=== PATIENT | female | born 1950 | race Caucasian/White ===

== ENCOUNTER 2018-03-26 16:08 | Emergency (ER) | payer OTHER, MEDICARE, BC ==
[~2018-03-26] VITALS: Ht 152.4 cm; Wt 52.6 kg
[~2018-03-26 16:08] MED LIST: Bactrim Ds Tab1 EACH PO; ESOM20 PO; HYDACE5 PO; HYDR1TAB94 PO; HYDSUL200 PO; KETO10 PO; NAPR550 PO; PREG25 PO; Prednisone20 MG PO; Ultram50 MG PO; Valium5 MG PO
[2018-03-26] MEDS ORDERED: SAVELLA25 MG PO (16:25)
== END 2018-03-26 18:54 | disposition home or self-care (01) ==
LOC: ER 16:08
DX: S13.4XXA Sprain of ligaments of cervical spine, initial encounter (principal); Z79.899 Other long term (current) drug therapy; V43.52XA Car driver injured in collision with other type car in traffic accident, initial encounter
CPT/HCPCS: 72040; 99283-25

== ENCOUNTER 2018-10-16 21:41 | Emergency (ER) | payer MEDICARE, BC ==
[~2018-10-16] VITALS: Ht 152.4 cm; Wt 55.3 kg
[~2018-10-16 21:41] MED LIST changes: +SAVELLA25 MG PO
[2018-10-16] MEDS ORDERED: PREG100 PO (23:39)
[2018-10-16] MEDS ORDERED: Hydrocodone-Ap1 EA20 PO (23:39)
== END 2018-10-17 00:13 | disposition home or self-care (01) ==
LOC: ER 21:41
DX: S83.92XA Sprain of unspecified site of left knee, initial encounter (principal); Z79.899 Other long term (current) drug therapy; W01.0XXA Fall on same level from slipping, tripping and stumbling without subsequent striking against object, initial encounter
CPT/HCPCS: 29505; 73562-LT; 73700; 99283-25

== ENCOUNTER 2020-08-05 19:15 | Emergency (ER) | payer MEDICARE, BC ==
[~2020-08-05] VITALS: Ht 165.1 cm; Wt 59.0 kg
[~2020-08-05 19:15] MED LIST changes: +Hydrocodone-Ap1 EA20 PO; +PREG100 PO
== END 2020-08-05 23:10 | disposition home or self-care (01) ==
LOC: ER 19:15
DX: U07.1 COVID-19 (principal); Z79.899 Other long term (current) drug therapy
CPT/HCPCS: 71045; 99284-25; A9270

== ENCOUNTER 2020-08-13 14:56 | Inpatient (IN) | payer MEDICARE, BC ==
[~2020-08-13] VITALS: Ht 154.9 cm; Wt 48.5 kg
[2020-08-13] MEDS ORDERED: PREGABALIN100 MG PO (15:11)
[2020-08-13] MEDS ORDERED: HYDROCODONE-AC1 EAC7 PO (15:11)
[2020-08-13 16:00] LABS: Albumin, Blood 2.3 g/dL (3.4-5.0); Albumin/Globulin Ratio 0.4 (0.8-1.8); Bilirubin, Total 0.9 mg/dL (0.1-1.0); Bun/Creatinine Ratio 30.2 (12.0-20.0); Creatinine, Blood 0.99 mg/dL (0.40-1.00); Globulin, Blood 5.4 g/dL (2.2-4.0); Potassium, Blood 4.3 mmol/L (3.5-5.5); Total Protein, Blood 7.7 g/dL (6.4-8.2)
[2020-08-13 16:05] LABS: Troponin I 0.016 ng/mL (0.000-0.040)
[2020-08-13 16:10] LABS: BASOPHILS ABSOLUTE AUTO 0.02 K/mm3 (0.00-0.23); BASOPHILS PERCENT AUTO 0 % (0-2); EOSINOPHILS ABSOLUTE AUTO 0.01 K/mm3 (0.00-0.68); EOSINOPHILS PERCENT AUTO 0 % (0-6); Hematocrit 38.4 % (33.0-51.0); Hemoglobin 12.7 g/dL (11.5-16.0); IMMATURE GRAN ABSOLUTE AUTO 0.07 K/mm3 (0.00-0.10); IMMATURE GRAN PERCENT AUTO 1 % (0-1); LYMPHOCYTES ABSOLUTE AUTO 0.64 K/mm3 (0.84-5.20); LYMPHOCYTES PERCENT AUTO 6 % (21-46); MONOCYTES ABSOLUTE AUTO 0.22 K/mm3 (0.16-1.47); MONOCYTES PERCENT AUTO 2 % (4-13); Mean Corpuscular HGB 30.4 pg (26.0-34.0); Mean Corpuscular HGB Conc 33.1 g/dL (31.5-36.5); Mean Corpuscular Volume 92 fL (80-100); Mean Platelet Volume 9.8 fL (9.1-12.4); NEUTROPHILS ABSOLUTE AUTO 10.44 K/mm3 (1.96-9.15); NEUTROPHILS PERCENT AUTO 92 % (41-73); Platelet Count 216 K/mm3 (150-400); RDW Coefficient Variation 12.5 % (11.7-14.2); RDW Standard Deviation 41.8 fL (35.1-46.3); Red Blood Cell Count 4.18 M/mm3 (3.80-5.20)
[2020-08-13 19:23] LABS: International Normalized Ratio 1.17; Prothrombin Time Results 12.5 Sec (9.7-11.5)
--- NOTE | 2020-08-13 21:12 | NUR ---
ADMIT NOTE PT ARRIVED TO PCU VIA ED STRETCHER AT APPROX 2014. PT AMBULATED FROM ED STRETCHER TO PCU BED INDEPENDENTLY. PT A&OX4, A GOOD HISTORIAN. SP02>90% ON 6L NON REBREATHER. DYSPNEA W/ ANY EXERTION. TELEMETRY READS SINUS TACH, 100'S. DENIES PAIN. PT STATES DIARRHEA AT HOME. HEPARIN INFUSING PER EMAR. NS INFUSING X1 PER EMAR. PT ORIENTED TO ROOM, CALL LIGHT.
[2020-08-14 03:54] LABS: BASOPHILS ABSOLUTE AUTO 0.01 K/mm3 (0.00-0.23); BASOPHILS PERCENT AUTO 0 % (0-2); EOSINOPHILS PERCENT AUTO 0 % (0-6); Hematocrit 36.3 % (33.0-51.0); Hemoglobin 11.9 g/dL (11.5-16.0); IMMATURE GRAN ABSOLUTE AUTO 0.05 K/mm3 (0.00-0.10); IMMATURE GRAN PERCENT AUTO 1 % (0-1); LYMPHOCYTES ABSOLUTE AUTO 0.51 K/mm3 (0.84-5.20); LYMPHOCYTES PERCENT AUTO 6 % (21-46); MONOCYTES ABSOLUTE AUTO 0.07 K/mm3 (0.16-1.47); MONOCYTES PERCENT AUTO 1 % (4-13); Mean Corpuscular HGB 29.8 pg (26.0-34.0); Mean Corpuscular HGB Conc 32.8 g/dL (31.5-36.5); Mean Corpuscular Volume 91 fL (80-100); Mean Platelet Volume 9.5 fL (9.1-12.4); NEUTROPHILS ABSOLUTE AUTO 7.31 K/mm3 (1.96-9.15); NEUTROPHILS PERCENT AUTO 92 % (41-73); Platelet Count 206 K/mm3 (150-400); RDW Coefficient Variation 12.7 % (11.7-14.2); RDW Standard Deviation 42.5 fL (35.1-46.3); White Blood Cell Count 7.95 K/mm3 (4.00-11.30)
[2020-08-14 04:13] LABS: Alanine Aminotransfer (ALT/SGP 12 U/L (12-78); Albumin, Blood 1.9 g/dL (3.4-5.0); Albumin/Globulin Ratio 0.4 (0.8-1.8); Alk Phos 92 U/L (50-136); Anion Gap 7 mmol/L (6-16); Aspartate Aminotrans (AST/SGOT 26 U/L (12-37); Bilirubin, Total 0.4 mg/dL (0.1-1.0); Blood Urea Nitrogen 28 mg/dL (8-24); Bun/Creatinine Ratio 37.4 (12.0-20.0); CO2, Blood 25 mmol/L (21-32); Calcium, Blood 8.4 mg/dL (8.5-10.1); Chloride, Blood 109 mmol/L (98-108); Creatinine, Blood 0.75 mg/dL (0.40-1.00); Globulin, Blood 4.8 g/dL (2.2-4.0); Glomerular Filtration Rate >60 (60-); Glucose, Blood 114 mg/dL (70-99); Potassium, Blood 4.3 mmol/L (3.5-5.5); Sodium, Blood 141 mmol/L (136-145); Total Protein, Blood 6.7 g/dL (6.4-8.2)
--- NOTE | 2020-08-14 06:19 | NUR ---
SHIFT SUMMARY PT A&OX4. SP02>90% ON 7L OF HUMIDIFIED [place] NC. PT NEEDS TO INCREASE TO 10L NC W/ AMBULATION TO MAINTAIN SATS. EXTREMELY SOB W/ ANY EXERTION. C/O OF DRY, HACKING COUGH. TELEMETRY READS SR/ST. HR 80'S-100'S. PT AMBULATED W/ ASSISTANCE TO BSC TO VOID AND HAVE BM, WEAKLY. HEPARIN INFUSING PER EMAR. FLUIDS INFUSING PER EMAR. CALL ILGHT IN REACH. WILL GIVE REPORT TO ONCOMING NURSE.
--- NOTE | 2020-08-14 12:29 | NUR ---
PT WITH INCREASED COUGHING, AMBULATED TO COMMODE SPO2 DROPPED TO 60s ON 14L O2 VIA NASAL CANNULA. RT CALLED PT SLOWLY RECOVERING WITH SPO2 TO 80s PT PROVIDED WITH FLUTTER VALVE AND ISS, PT EDUCATED ABOUT PRONING AND REFUSED TO PRONE DESPITE EDUCATION REFUSED PRONING.
--- NOTE | 2020-08-14 12:48 | NUR ---
PT USING ISS AND FLUTTER VALVE STS THAT SHE WILL ATTEMPT TO PRONE SHORTLY. SPO2 89% ON 14L O2, IS AWARE
--- NOTE | 2020-08-14 15:27 | NUR ---
PT'S SPO2 CONTINUES TO BE IN THE MID TO HIGH 80s ON 15L O2 VIA NASAL CANNULA. PT WAS PLACED ON AIRVO 45L @ 85% WITH SPO2 93-96%, PT REFUSED TO WEAR AIRVO IT MADE HER "SNEEZE" PT EDUCATED THAT HER SPO2 REMAINS LOW ON NC BUT REFUSES OTHER O2 DELIVERY METHODS. PT CONTINUES TO REFUSE PRONING STS SHE NEEDS "REST" INSTEAD.
--- NOTE | 2020-08-14 18:08 | NUR ---
SHIFT NOTE PT'S OXYGEN NEEDS HAVE INCREASED GREATLY THROUGHOUT THE DAY. PT WITH DESATURATION WITH AMBUALTION TO BSC, PT REQUIRES MORE OXYGEN WHEN UP TO COMMODE AND TAKES A GREAT DEAL OF TIME TO RECOVER POST AMBULATION. PT IS NOW ON 15L O2 VIA HIGH FLOW CANNULA WITH SPO2 OF 93%. PT HAS REFUSED AIRVO WHEN NEEDED FOR RECOVERY TODAY. PT PROVIDED WITH FLUTTER VALVE AND ISS WHICH SHE USED A FEW TIMES THIS AM. PT REFUSES TO PRONE DESPITE EDUCATION. PT WITH WEAK GAIT TO TRAN[facility] FROM [facility] [place] [facility] [place]T A BAD KNEE. PT MD IS AWARE OF O2 NEEDS AND REFUSAL OF AIRVO. PT NOW HAS A REGULAR DIET ORDERED. VSS WITH EXPECTION OCCASIONALLY OF SPO2.
--- NOTE | 2020-08-14 22:50 | NUR ---
FAMILY CALL THIS RN UPDATES DAUGHTER BILLIE W/PT PERMISSION.
[2020-08-15 03:32] LABS: BASOPHILS ABSOLUTE AUTO 0.01 K/mm3 (0.00-0.23); BASOPHILS PERCENT AUTO 0 % (0-2); EOSINOPHILS PERCENT AUTO 0 % (0-6); Hematocrit 34.1 % (33.0-51.0); Hemoglobin 11.2 g/dL (11.5-16.0); IMMATURE GRAN ABSOLUTE AUTO 0.14 K/mm3 (0.00-0.10); IMMATURE GRAN PERCENT AUTO 1 % (0-1); LYMPHOCYTES ABSOLUTE AUTO 0.95 K/mm3 (0.84-5.20); LYMPHOCYTES PERCENT AUTO 8 % (21-46); MONOCYTES ABSOLUTE AUTO 0.43 K/mm3 (0.16-1.47); MONOCYTES PERCENT AUTO 3 % (4-13); Mean Corpuscular HGB 30.1 pg (26.0-34.0); Mean Corpuscular HGB Conc 32.8 g/dL (31.5-36.5); Mean Corpuscular Volume 92 fL (80-100); Mean Platelet Volume 9.4 fL (9.1-12.4); NEUTROPHILS ABSOLUTE AUTO 10.95 K/mm3 (1.96-9.15); NEUTROPHILS PERCENT AUTO 88 % (41-73); Platelet Count 252 K/mm3 (150-400); RDW Coefficient Variation 12.7 % (11.7-14.2); RDW Standard Deviation 42.5 fL (35.1-46.3); Red Blood Cell Count 3.72 M/mm3 (3.80-5.20); White Blood Cell Count 12.48 K/mm3 (4.00-11.30)
[2020-08-15 03:47] LABS: International Normalized Ratio 1.22
--- NOTE | 2020-08-15 04:01 | NUR ---
UPDATE PT DESATS TO LOW 70'S WITH UP TO BEDSIDE COMMODE. PT SATS IN 70'S, RAKESH RT AT BEDSIDE TO SWITCH PT TO AIRVO, PT AGREEABLE TO PRONE, THIS RN AND RAKESH RT ASSIST PT. SETTINGS ON AIRVO AT 40 L/MIN AND 79% O2.
[2020-08-15 04:02] LABS: Alanine Aminotransfer (ALT/SGP 11 U/L (12-78); Albumin, Blood 1.9 g/dL (3.4-5.0); Albumin/Globulin Ratio 0.4 (0.8-1.8); Alk Phos 77 U/L (50-136); Anion Gap 6 mmol/L (6-16); Aspartate Aminotrans (AST/SGOT 19 U/L (12-37); Bilirubin, Total 0.3 mg/dL (0.1-1.0); Blood Urea Nitrogen 34 mg/dL (8-24); Bun/Creatinine Ratio 47.4 (12.0-20.0); CO2, Blood 27 mmol/L (21-32); Calcium, Blood 8.6 mg/dL (8.5-10.1); Chloride, Blood 107 mmol/L (98-108); Creatinine, Blood 0.72 mg/dL (0.40-1.00); Globulin, Blood 4.4 g/dL (2.2-4.0); Glomerular Filtration Rate >60 (60-); Glucose, Blood 135 mg/dL (70-99); Magnesium, Blood 2.4 mg/dL (1.6-2.4); Phosphorus, Blood 3.1 mg/dL (2.5-4.9); Potassium, Blood 4.3 mmol/L (3.5-5.5); Sodium, Blood 140 mmol/L (136-145); Thyroid Stimulating Hormone 0.194 uIU/mL (0.360-4.800); Total Protein, Blood 6.3 g/dL (6.4-8.2); Troponin I 0.017 ng/mL (0.000-0.040)
--- NOTE | 2020-08-15 06:30 | NUR ---
SHIFT SUMMARY PT AOX3, RHYTHM SINUS-SINUS INNA 40'S-70'S. PT DYSPNEIC WITH UP TO BSC. STANDBY ASSIST. SATS DROP TO 70'S ON 15 L VIA HIGH FLOW NC IN NIGHT, PT SATS TOOK LONG TO RECOVER WHILE SITTING ON BED, MAINTAINED IN 70'S, RAKESH RT TO BEDSIDE AND PT PLACED ON AIRVO, PRONED IN BED WITH ASSISTANCE, SATS UP TO 98-100% WHILE PRONED AND ON AIRVO. HEPARIN DRIP CONTINUES AT ADJUSTED RATE OF 21.2 MLS/HR 20 U/KG/HR. THIS RN CALLED RENETTA IN PHARMACY WHEN PTT RESULTED THIS AM OF 74. RENETTA STATED NO CHANGES TO DRIP AT THIS TIME. PT SLEPT PEACEFULLY PRONED ON AIRVO FOR REST OF THIS AM. HR DOWN IN 40'S-50'S, SINUS INNA. PT ON TELE.
--- NOTE | 2020-08-15 19:11 | NUR ---
PT HAS REMAINED ON AIRVO T/O THE DAY WHICH IS SHE IS TOLERATING WELL. PT DESATURATED SLIGHTLY WITH AMBUALTION TO BEDSIDE COMMODE BUT WAS ABLE TO RECOVER MORE QUICKLY ON THE AIRVO. VSS. REPORTS SOME LOWER LEG PAIN, TREATED WITH TYLENOL. PT OTHERWISE APPEARS TO HAVE SLIGHT IMPROVEMENT IN RESPIRATORY STATUS
--- NOTE | 2020-08-15 19:56 | NUR ---
HEPARIN ADJUSTMENT RATE INCREASED TO 24.4 MLS/HR, 23 U/KG/HR PER ORDERS, 2500 U BOLUS GIVEN PER ORDER.
[2020-08-16 02:16] LABS: BASOPHILS ABSOLUTE AUTO 0.01 K/mm3 (0.00-0.23); BASOPHILS PERCENT AUTO 0 % (0-2); EOSINOPHILS PERCENT AUTO 0 % (0-6); Hematocrit 34.3 % (33.0-51.0); Hemoglobin 11.6 g/dL (11.5-16.0); IMMATURE GRAN ABSOLUTE AUTO 0.16 K/mm3 (0.00-0.10); IMMATURE GRAN PERCENT AUTO 2 % (0-1); LYMPHOCYTES ABSOLUTE AUTO 0.93 K/mm3 (0.84-5.20); LYMPHOCYTES PERCENT AUTO 9 % (21-46); MONOCYTES ABSOLUTE AUTO 0.56 K/mm3 (0.16-1.47); MONOCYTES PERCENT AUTO 5 % (4-13); Mean Corpuscular HGB 30.3 pg (26.0-34.0); Mean Corpuscular HGB Conc 33.8 g/dL (31.5-36.5); Mean Corpuscular Volume 90 fL (80-100); Mean Platelet Volume 9.4 fL (9.1-12.4); NEUTROPHILS ABSOLUTE AUTO 8.81 K/mm3 (1.96-9.15); NEUTROPHILS PERCENT AUTO 84 % (41-73); Platelet Count 325 K/mm3 (150-400); RDW Coefficient Variation 12.4 % (11.7-14.2); RDW Standard Deviation 40.6 fL (35.1-46.3); Red Blood Cell Count 3.83 M/mm3 (3.80-5.20); White Blood Cell Count 10.47 K/mm3 (4.00-11.30)
[2020-08-16 02:36] LABS: International Normalized Ratio 1.27; Prothrombin Time Results 13.5 Sec (9.7-11.5)
[2020-08-16 02:44] LABS: Alanine Aminotransfer (ALT/SGP 16 U/L (12-78); Albumin/Globulin Ratio 0.5 (0.8-1.8); Alk Phos 77 U/L (50-136); Anion Gap 6 mmol/L (6-16); Aspartate Aminotrans (AST/SGOT 24 U/L (12-37); Bilirubin, Total 0.3 mg/dL (0.1-1.0); Blood Urea Nitrogen 26 mg/dL (8-24); Bun/Creatinine Ratio 37.8 (12.0-20.0); CO2, Blood 26 mmol/L (21-32); Calcium, Blood 8.7 mg/dL (8.5-10.1); Chloride, Blood 107 mmol/L (98-108); Creatinine, Blood 0.69 mg/dL (0.40-1.00); Globulin, Blood 4.3 g/dL (2.2-4.0); Glomerular Filtration Rate >60 (60-); Glucose, Blood 130 mg/dL (70-99); Magnesium, Blood 2.1 mg/dL (1.6-2.4); Phosphorus, Blood 3.2 mg/dL (2.5-4.9); Potassium, Blood 4.2 mmol/L (3.5-5.5); Sodium, Blood 139 mmol/L (136-145); Total Protein, Blood 6.3 g/dL (6.4-8.2); Troponin I <0.015 ng/mL (0.000-0.040)
--- NOTE | 2020-08-16 08:12 | NUR ---
SHIFT SUMMARY PT AOX4 T/O SHIFT. DYSPNEA WITH EXERTION. ON TELE, SINUS IN 50'S-70'S T/O SHIFT. PT PRONED FOR MOST OF SHIFT, TOLERATED WELL SATS 96-100% ON AIRVO AND NC HUMIDIFIED HF AT 6 L. ONE EPISODE OF SEVERE DECOMPENSATION WHEN UP TO BEDSIDE COMMODE WITH THIS RN. PLACED BACK ON AIRVO FROM 6 L FOLLOWING PT REPOSITIONING FROM PRONE TO ON BACK. PT REFUSED ORAL CARE, WANTED TO DEFER TO AM. PTT 115.8, HEPARIN GTT CONTINUES AT LOWER RATE OF 22 U/KG/HR PER RENETTA CONSULT IN PHARMACY.
--- NOTE | 2020-08-16 17:32 | NUR ---
SHIFT NOTE PT HAS TOELRATED AIRVO WELL T/O THE DAY. PT UP TO BSC WITH VERY LITTLE DESATURATION TODAY. DENIES CP. STS THAT TODAY LEG PAIN HAS MOSTLY RESOLVED IS MORE "SORE" THAN ANYTHING TODAY. VSS. PT TALKING IN LONGER SENTENCES THAN PREVIOUS SHIFT, PT APPEARS LESS TIRED, AND FATIGUES LESS T/O THE DAY.
[2020-08-17 04:17] LABS: BASOPHILS ABSOLUTE AUTO 0.02 K/mm3 (0.00-0.23); BASOPHILS PERCENT AUTO 0 % (0-2); EOSINOPHILS PERCENT AUTO 0 % (0-6); Hematocrit 35.9 % (33.0-51.0); Hemoglobin 12.1 g/dL (11.5-16.0); IMMATURE GRAN ABSOLUTE AUTO 0.36 K/mm3 (0.00-0.10); IMMATURE GRAN PERCENT AUTO 4 % (0-1); LYMPHOCYTES ABSOLUTE AUTO 1.25 K/mm3 (0.84-5.20); LYMPHOCYTES PERCENT AUTO 13 % (21-46); MONOCYTES ABSOLUTE AUTO 0.95 K/mm3 (0.16-1.47); MONOCYTES PERCENT AUTO 10 % (4-13); Mean Corpuscular HGB 30.3 pg (26.0-34.0); Mean Corpuscular HGB Conc 33.7 g/dL (31.5-36.5); Mean Corpuscular Volume 90 fL (80-100); Mean Platelet Volume 9.2 fL (9.1-12.4); NEUTROPHILS PERCENT AUTO 73 % (41-73); Platelet Count 322 K/mm3 (150-400); RDW Coefficient Variation 12.2 % (11.7-14.2); RDW Standard Deviation 40.2 fL (35.1-46.3); Red Blood Cell Count 3.99 M/mm3 (3.80-5.20); White Blood Cell Count 9.58 K/mm3 (4.00-11.30)
[2020-08-17 04:39] LABS: Alanine Aminotransfer (ALT/SGP 38 U/L (12-78); Albumin, Blood 2.1 g/dL (3.4-5.0); Albumin/Globulin Ratio 0.5 (0.8-1.8); Alk Phos 73 U/L (50-136); Anion Gap 4 mmol/L (6-16); Aspartate Aminotrans (AST/SGOT 40 U/L (12-37); Bilirubin, Total 0.4 mg/dL (0.1-1.0); Blood Urea Nitrogen 25 mg/dL (8-24); Bun/Creatinine Ratio 35.6 (12.0-20.0); CO2, Blood 29 mmol/L (21-32); Calcium, Blood 8.8 mg/dL (8.5-10.1); Chloride, Blood 105 mmol/L (98-108); Globulin, Blood 4.1 g/dL (2.2-4.0); Glomerular Filtration Rate >60 (60-); Glucose, Blood 103 mg/dL (70-99); Magnesium, Blood 2.2 mg/dL (1.6-2.4); Phosphorus, Blood 3.3 mg/dL (2.5-4.9); Potassium, Blood 4.1 mmol/L (3.5-5.5); Sodium, Blood 138 mmol/L (136-145); Total Protein, Blood 6.2 g/dL (6.4-8.2)
--- NOTE | 2020-08-17 05:01 | NUR ---
SHIFT SUMMARY PT A&OX4. SP02>90% ON 6L [place] NC. PT DESATS W/ MOVEMENT. PT ENCOURAGED TO PRONE. TELEMETRY READS SINUS RHYTHM, HR 70'S. PT UP TO BSC 1 PERSON ASSIST FOR LINE MANAGMENT. PT C/O OF L KNEE PAIN/SWELLING. ICE PACK APPLIED W/ SUCCESSFUL RELIEF OF PAIN AND SWELLING. HEPARIN INFUSED PER EMAR. PT SLEPT MOST OF SHIFT. CALL LIGHT IN REACH. WILL GIVE REPORT TO ONCOMING NURSE.
--- NOTE | 2020-08-17 05:15 | NUR ---
ASSUMED CARE RECEIVED BEDSIDE REPORT FROM BOB RN AND ASSUMED CARE. PT IS RESTING IN BED WITH HIGH FLOW NASAL CANNULA AT [address], SATS 93-95%. HEPAIN GTT RUNNING AND VERFIED AT TIME OF REPORT. NO ACUTE CONCERNS AT THIS TIME, WILL REPORT OFF TO DAY SHIFT RN.
--- NOTE | 2020-08-17 15:34 | NUR ---
LATE ENTRY 1100 PT REPORTS HEMOPTYSIS THIS AM, DR MALLOY NOTIFIED, NEW ORDER TO HOLD HEPARIN FOR A FEW HOURS. HEPARIN STOPPED AT APPROX 1130. [address] MALLOY TO CLARIFY ORDERS FOR HEPARIN, NEW ORDERS TO RESTART HEPARIN AT 1500. PT REPORTS NO FURTHR HEMOPTYSIS. 1516 - HEPARIN RESTARTED PER ORDERS.
--- NOTE | 2020-08-17 19:29 | NUR ---
SHIFT SUMMARY PT A&Ox4; CALM AND COOPERATIVE WITH CARE. SBA TO BSC. PT SOB WITH EXERTION, ON 7L O2 VIA NC TITRATED TO 3-4L THIS EVENING, INCREASE TO 4-5L WIHT ACTIVETY. PT DESATURATES WITH ACTIVITY TO MID 80'S, QUICKLY RECOVERS. PT COUGHING T/O SHIFT, HEMOPTYSIS NOTED THIS AM, HELD HEPARIN FROM [id number] ISTRATE ORDERS. PT DENIES HEMOPTYSIS FOR REMAINDER OF SHIFT, AFTER SR ROUNDING THIS AM. PT DENIES PAIN, CHEST PAIN, NAUSEA AND DIZZINESS. HEPARIN GTT, PT RECEIVING IV ANTIBIOTICS AND REMDESIVIR. OTHER VSS. NO OTHER ACUTE CHANGES NOTED. REPORT GIVEN TO ONCOMING RN.
[2020-08-18 06:21] LABS: BASOPHILS ABSOLUTE AUTO 0.03 K/mm3 (0.00-0.23); BASOPHILS PERCENT AUTO 0 % (0-2); EOSINOPHILS PERCENT AUTO 0 % (0-6); Hematocrit 39.4 % (33.0-51.0); Hemoglobin 12.9 g/dL (11.5-16.0); IMMATURE GRAN ABSOLUTE AUTO 0.52 K/mm3 (0.00-0.10); IMMATURE GRAN PERCENT AUTO 4 % (0-1); LYMPHOCYTES ABSOLUTE AUTO 2.23 K/mm3 (0.84-5.20); LYMPHOCYTES PERCENT AUTO 17 % (21-46); MONOCYTES PERCENT AUTO 6 % (4-13); Mean Corpuscular HGB 29.8 pg (26.0-34.0); Mean Corpuscular HGB Conc 32.7 g/dL (31.5-36.5); Mean Corpuscular Volume 91 fL (80-100); Mean Platelet Volume 9.6 fL (9.1-12.4); NEUTROPHILS ABSOLUTE AUTO 9.66 K/mm3 (1.96-9.15); NEUTROPHILS PERCENT AUTO 73 % (41-73); Platelet Count 334 K/mm3 (150-400); RDW Coefficient Variation 12.5 % (11.7-14.2); RDW Standard Deviation 41.2 fL (35.1-46.3); Red Blood Cell Count 4.33 M/mm3 (3.80-5.20); White Blood Cell Count 13.24 K/mm3 (4.00-11.30)
[2020-08-18 06:51] LABS: Alanine Aminotransfer (ALT/SGP 42 U/L (12-78); Albumin, Blood 2.3 g/dL (3.4-5.0); Albumin/Globulin Ratio 0.5 (0.8-1.8); Alk Phos 75 U/L (50-136); Anion Gap 5 mmol/L (6-16); Aspartate Aminotrans (AST/SGOT 28 U/L (12-37); Bilirubin, Total 0.4 mg/dL (0.1-1.0); Blood Urea Nitrogen 25 mg/dL (8-24); Bun/Creatinine Ratio 30.8 (12.0-20.0); CO2, Blood 29 mmol/L (21-32); Calcium, Blood 8.7 mg/dL (8.5-10.1); Chloride, Blood 103 mmol/L (98-108); Creatinine, Blood 0.81 mg/dL (0.40-1.00); Globulin, Blood 4.3 g/dL (2.2-4.0); Glomerular Filtration Rate >60 (60-); Glucose, Blood 106 mg/dL (70-99); Sodium, Blood 137 mmol/L (136-145); Total Protein, Blood 6.6 g/dL (6.4-8.2); Troponin I <0.015 ng/mL (0.000-0.040)
--- NOTE | 2020-08-18 06:51 | NUR ---
HOSPITALIST NOTIFIED PT C/O PAIN TO THE RIGHT LOWER RIB/LUNG. PT'S SPO2 REMAINS ABOVE 92% ON 4L O2 VIA NC. LUNG SOUNDS ARE DIMINISHED THROUGH OUT, SLIGHT RUB NOTED TO R.LL. 1 VIEW CHEST XRAY ORDERED
[2020-08-18 07:06] LABS: International Normalized Ratio 1.22
--- NOTE | 2020-08-18 13:16 | NUR ---
AM NOTE ASSUMED CARE OF PATIENT AT APPROX 0700. A&Ox4; CALM AND COOPERATIVE WITH CARE. PT RESTING IN BED DURING SHIFT. UP WITH SBA TO BSC. PT REPORTS RIGHT SIDE/RIB PAIN, INTERMITTENT SHARP; NOTIFIED DR MALLOY, NEW ORDER FOR TRAMADOL. NOTIIFED DR MALLOY OF RESULTS OF XRAY. PT SOB WITH EXERTION; PT DESATURATS WITH EXERTION, SPO2 >88 WITH ACTIVITY AT 3L O2 VIANC, WILL CONTINUE TO TITRATE NEEDED. PT DENIES HEMOTYSIS AND ANY OTHER BLEEDING. PT DENIES NAUSEA, DIZZINES AND CHEST PAIN. VSS. NO OTHER ACUTE CHANGES NOTED. WILL CONTINUE TO MONITOR.
--- NOTE | 2020-08-18 17:38 | NUR ---
SHIFT SUMMARY PT CONTINUES TO DENIES HEMOTYSIS AND BLEEDING T/O SHIFT. TITRATED TO 1L O2 VIA NC THIS AFTENROON, INCREASED TO 3L WITH ACTIVITY. PT TO FOR CHEST CT THIS AFTERNOON, RESULTS PENDING. VSS. NO OTHER ACUTE CHANGES NOTED DURING SHIFT. WILL CONTINUE TO MONITOR UNTIL REPORT GIVEN TO ONCOMING RN.
--- NOTE | 2020-08-19 06:50 | NUR ---
HEPARIN STOPPED AT THIS TIME PER PHARMACY REQUEST DUE TO CRITAICAL PTT OF >139.
--- NOTE | 2020-08-19 06:51 | NUR ---
SUMMARY PT HAS BEEN ABLE TO REST WITH NO PROBLEMS THROUGH THE NIGHT. SHE HAS MAINTAINED AN SPO2 >93% ON 1 L O2 VIA NC UNTIL THIS AM. SHE WAS INCREASED TO 3L & ENC TO USE INCENTIVE SPIROMETER AFTER DIPPING INTO THE HIGH 80'S AFTER GETTING UP TO THE BSC. PT IS COOPERATIVE & SPO2 RETURNED TO 94%. PT WAS LEFT @ 3L. SHE IS TOLERATING PO INTAKE, VOIDING WNL. HEPARIN WAS HELD THIS AM DUE TO CRITICAL PTT >139. NO CHANGE IN PT CONDITION. CALL LIGHT IN REACH. WILL REPORT TO DAY RN.
[2020-08-19] MEDS ORDERED: DEXA2 PO (13:13)
[2020-08-19] MEDS ORDERED: XARELTO20 MG PO ×2 (13:15→13:18)
[2020-08-19] MEDS ORDERED: ACET325 PO (13:30)
[2020-08-19] MEDS ORDERED: Q-Tussin100 MG/5 M (13:31)
[2020-08-19] MEDS ORDERED: LEVO750 PO (13:31)
[2020-08-19] MEDS ORDERED: LOPE2C PO (13:32)
[2020-08-19] MEDS ORDERED: LORA.5 PO (13:33)
[2020-08-19] MEDS ORDERED: PROM25 PO (13:34)
[2020-08-19] MEDS ORDERED: VISBIOME 112.51 EACH PO (13:35)
--- NOTE | 2020-08-19 18:48 | NUR ---
PT AND FAMILY EXPRESSED UNDERSTANDING OF DC TEACHING.MEDS ARE CALLED INTO [facility] FOR XARELVINI AND TONY FOR THE REMAINDER. FAMILY IS AWARE OF THE SPLIT IN PHAMRACIES FAMILY CALLED TO NOTIFIY THIS RN THAT PT WAS UNABLE TO GET XARELTO FROM [facility]
== END 2020-08-19 18:25 | disposition home or self-care (01) | DRG 177 ==
LOC: ER 14:56 → ERHOLD 19:29 → PCU 19:29
PROVIDERS: Family Medicine; Physician Assistant; ADMIT Internal Medicine
PROC: 8E0ZXY6 Isolation (ICD-10-PCS; principal; 2020-08-13)
PROC: 3E033PZ Introduction of Platelet Inhibitor into Peripheral Vein, Percutaneous Approach (ICD-10-PCS; 2020-08-13)
PROC: XW033E5 Introduction of Remdesivir Anti-infective into Peripheral Vein, Percutaneous Approach, New Technology Group 5 (ICD-10-PCS; 2020-08-13)
DX: U07.1 COVID-19 (principal); J96.01 Acute respiratory failure with hypoxia; J12.82 Pneumonia due to coronavirus disease 2019; I26.99 Other pulmonary embolism without acute cor pulmonale; R04.2 Hemoptysis; D68.32 Hemorrhagic disorder due to extrinsic circulating anticoagulants; R04.0 Epistaxis; A08.4 Viral intestinal infection, unspecified; T45.515A Adverse effect of anticoagulants, initial encounter; E86.0 Dehydration; G89.29 Other chronic pain; M79.7 Fibromyalgia; Z79.899 Other long term (current) drug therapy
CPT/HCPCS: 36415; 71045; 71260; 80053; 83690; 83735; 83880; 84100; 84145; 84443; 84484; 85025; 85610; 85651; 85730; 86140; 93005; 93010; 94667; 94761; 94762; 96361; 96365; 96366; 96375; 99285-25; A9270; J1100; J1644; J1956; J2405; J7030; Q9967

== ENCOUNTER 2020-09-26 20:08 | Observation (INO) | payer MEDICARE, BC ==
[~2020-09-26] VITALS: Ht 152.4 cm; Wt 50.8 kg
[~2020-09-26 20:08] MED LIST changes: +ACET325 PO; +DEXA2 PO; +HYDROCODONE-AC1 EAC7 PO; +LEVO750 PO; +LOPE2C PO; +LORA.5 PO; +PREGABALIN100 MG PO; +PROM25 PO; +Q-Tussin100 MG/5 M; +VISBIOME 112.51 EACH PO; +XARELTO20 MG PO
[2020-09-26 21:29] LABS: BASOPHILS ABSOLUTE AUTO 0.05 K/mm3 (0.00-0.23); BASOPHILS PERCENT AUTO 1 % (0-2); EOSINOPHILS ABSOLUTE AUTO 0.05 K/mm3 (0.00-0.68); EOSINOPHILS PERCENT AUTO 1 % (0-6); Hematocrit 37.4 % (33.0-51.0); IMMATURE GRAN ABSOLUTE AUTO 0.02 K/mm3 (0.00-0.10); IMMATURE GRAN PERCENT AUTO 0 % (0-1); LYMPHOCYTES ABSOLUTE AUTO 1.73 K/mm3 (0.84-5.20); LYMPHOCYTES PERCENT AUTO 31 % (21-46); MONOCYTES ABSOLUTE AUTO 0.59 K/mm3 (0.16-1.47); MONOCYTES PERCENT AUTO 11 % (4-13); Mean Corpuscular HGB 30.5 pg (26.0-34.0); Mean Corpuscular HGB Conc 32.1 g/dL (31.5-36.5); Mean Corpuscular Volume 95 fL (80-100); Mean Platelet Volume 9.5 fL (9.1-12.4); NEUTROPHILS PERCENT AUTO 57 % (41-73); Platelet Count 271 K/mm3 (150-400); RDW Coefficient Variation 13.2 % (11.7-14.2); RDW Standard Deviation 46.5 fL (35.1-46.3); Red Blood Cell Count 3.94 M/mm3 (3.80-5.20); White Blood Cell Count 5.64 K/mm3 (4.00-11.30)
[2020-09-26 21:45] LABS: Prothrombin Time Results 10.8 Sec (9.7-11.5)
[2020-09-26 21:49] LABS: Alanine Aminotransfer (ALT/SGP 21 U/L (12-78); Albumin, Blood 3.6 g/dL (3.4-5.0); Albumin/Globulin Ratio 0.9 (0.8-1.8); Alk Phos 86 U/L (50-136); Anion Gap 3 mmol/L (6-16); Aspartate Aminotrans (AST/SGOT 22 U/L (12-37); Bilirubin, Total 0.3 mg/dL (0.1-1.0); Blood Urea Nitrogen 17 mg/dL (8-24); Bun/Creatinine Ratio 24.7 (12.0-20.0); CO2, Blood 33 mmol/L (21-32); Calcium, Blood 9.5 mg/dL (8.5-10.1); Chloride, Blood 104 mmol/L (98-108); Creatinine, Blood 0.69 mg/dL (0.40-1.00); Globulin, Blood 3.9 g/dL (2.2-4.0); Glomerular Filtration Rate >60 (60-); Glucose, Blood 88 mg/dL (70-99); Sodium, Blood 140 mmol/L (136-145); Total Protein, Blood 7.5 g/dL (6.4-8.2); Troponin I <0.015 ng/mL (0.000-0.040)
[2020-09-27] MEDS ORDERED: PREG100 PO (01:36)
[2020-09-27 06:20] LABS: BASOPHILS ABSOLUTE AUTO 0.05 K/mm3 (0.00-0.23); BASOPHILS PERCENT AUTO 1 % (0-2); EOSINOPHILS ABSOLUTE AUTO 0.04 K/mm3 (0.00-0.68); EOSINOPHILS PERCENT AUTO 1 % (0-6); Hematocrit 37.6 % (33.0-51.0); IMMATURE GRAN ABSOLUTE AUTO 0.01 K/mm3 (0.00-0.10); IMMATURE GRAN PERCENT AUTO 0 % (0-1); LYMPHOCYTES ABSOLUTE AUTO 1.64 K/mm3 (0.84-5.20); LYMPHOCYTES PERCENT AUTO 35 % (21-46); MONOCYTES ABSOLUTE AUTO 0.52 K/mm3 (0.16-1.47); MONOCYTES PERCENT AUTO 11 % (4-13); Mean Corpuscular HGB Conc 31.9 g/dL (31.5-36.5); Mean Corpuscular Volume 94 fL (80-100); Mean Platelet Volume 9.7 fL (9.1-12.4); NEUTROPHILS ABSOLUTE AUTO 2.39 K/mm3 (1.96-9.15); NEUTROPHILS PERCENT AUTO 51 % (41-73); Platelet Count 260 K/mm3 (150-400); RDW Coefficient Variation 13.4 % (11.7-14.2); White Blood Cell Count 4.65 K/mm3 (4.00-11.30)
[2020-09-27 06:40] LABS: Alanine Aminotransfer (ALT/SGP 22 U/L (12-78); Albumin, Blood 3.3 g/dL (3.4-5.0); Albumin/Globulin Ratio 0.8 (0.8-1.8); Alk Phos 85 U/L (50-136); Anion Gap 3 mmol/L (6-16); Aspartate Aminotrans (AST/SGOT 17 U/L (12-37); Bilirubin, Total 0.2 mg/dL (0.1-1.0); Blood Urea Nitrogen 16 mg/dL (8-24); Bun/Creatinine Ratio 20.9 (12.0-20.0); CO2, Blood 30 mmol/L (21-32); Calcium, Blood 9.4 mg/dL (8.5-10.1); Chloride, Blood 106 mmol/L (98-108); Creatinine, Blood 0.76 mg/dL (0.40-1.00); Globulin, Blood 3.9 g/dL (2.2-4.0); Glomerular Filtration Rate >60 (60-); Glucose, Blood 83 mg/dL (70-99); Potassium, Blood 3.9 mmol/L (3.5-5.5); Sodium, Blood 139 mmol/L (136-145); Total Protein, Blood 7.2 g/dL (6.4-8.2)
[2020-09-27 06:57] LABS: CPK Creatine Kinase 107 U/L (26-193)
--- NOTE | 2020-09-27 14:16 | NUR ---
PT TRANSFERRED TO ROOM VIA WHEELCHAIR, A/O X 4, PLEASANT COOPERATIVE. PT ORIENTED TO ROOM AND CALL LIGHT, VS STABLE, REGULAR DIET TOLERATED. BED IN LOWEST POSITION, BED RAILS UP X 2, CALL LIGHT WITHIN REACH
[2020-09-27 14:21] LABS: CPK Creatine Kinase 88 U/L (26-193)
--- NOTE | 2020-09-27 15:59 | NUR ---
FOLLOWING NEGATIVE STRESS TEST RESULTS, PT RELEASED TO LEAVE. REMOVED PERIPHERAL IV WNL. NO DISCHARGE ORDERS OR INSTRUCTIONS REQUIRED.
== END 2020-09-27 15:45 | disposition home or self-care (01) ==
LOC: ER 20:08 → ERHOLD 20:09 → SURS 09-27 13:49
PROVIDERS: Physician Assistant; ADMIT Internal Medicine
DX: R07.89 Other chest pain (principal); I10 Essential (primary) hypertension; I26.99 Other pulmonary embolism without acute cor pulmonale; Z86.16 Personal history of COVID-19; Z79.01 Long term (current) use of anticoagulants; Z99.81 Dependence on supplemental oxygen
CPT/HCPCS: 36415; 71045; 78452; 80053; 82550; 84484; 85025; 85610; 85730; 93005; 93010; 93017; 99285-25; A9270; A9500; G0378; J2785

== ENCOUNTER → 2021-05-12 | Outpatient (CLI) | payer MEDICARE, BC ==
[2021-05-12 18:55] LABS: BASOPHILS ABSOLUTE AUTO 0.02 K/mm3 (0.00-0.23); BASOPHILS PERCENT AUTO 1 % (0-2); EOSINOPHILS ABSOLUTE AUTO 0.02 K/mm3 (0.00-0.68); EOSINOPHILS PERCENT AUTO 1 % (0-6); Hematocrit 37.7 % (33.0-51.0); Hemoglobin 12.3 g/dL (11.5-16.0); IMMATURE GRAN PERCENT AUTO 0 % (0-1); LYMPHOCYTES ABSOLUTE AUTO 1.97 K/mm3 (0.84-5.20); LYMPHOCYTES PERCENT AUTO 46 % (21-46); MONOCYTES ABSOLUTE AUTO 0.42 K/mm3 (0.16-1.47); MONOCYTES PERCENT AUTO 10 % (4-13); Mean Corpuscular HGB 30.4 pg (26.0-34.0); Mean Corpuscular HGB Conc 32.6 g/dL (31.5-36.5); Mean Corpuscular Volume 93 fL (80-100); NEUTROPHILS ABSOLUTE AUTO 1.83 K/mm3 (1.96-9.15); NEUTROPHILS PERCENT AUTO 43 % (41-73); Platelet Count 228 K/mm3 (150-400); RDW Coefficient Variation 11.5 % (11.7-14.2); RDW Standard Deviation 39.7 fL (35.1-46.3); Red Blood Cell Count 4.04 M/mm3 (3.80-5.20); White Blood Cell Count 4.26 K/mm3 (4.00-11.30)
[2021-05-12 20:27] LABS: Alanine Aminotransfer (ALT/SGP 24 U/L (12-78); Albumin, Blood 3.9 g/dL (3.4-5.0); Albumin/Globulin Ratio 1.3 (0.8-1.8); Alk Phos 75 U/L (50-136); Anion Gap 1 mmol/L (6-16); Aspartate Aminotrans (AST/SGOT 18 U/L (12-37); Bilirubin, Total 0.4 mg/dL (0.1-1.0); Blood Urea Nitrogen 26 mg/dL (8-24); Bun/Creatinine Ratio 30.6 (12.0-20.0); CO2, Blood 33 mmol/L (21-32); Calcium, Blood 9.5 mg/dL (8.5-10.1); Chloride, Blood 103 mmol/L (98-108); Creatinine, Blood 0.85 mg/dL (0.40-1.00); Glomerular Filtration Rate >60 (60-); Glucose, Blood 86 mg/dL (70-99); Potassium, Blood 3.8 mmol/L (3.5-5.5); Sodium, Blood 137 mmol/L (136-145); Total Protein, Blood 6.9 g/dL (6.4-8.2)
== END ==
LOC: LAB SHORT 17:43
PROVIDERS: Family Medicine
DX: R53.83 Other fatigue (principal)
CPT/HCPCS: 80053; 82306; 84443; 85025

== ENCOUNTER → 2023-08-28 | Outpatient (CLI) | payer MEDICARE, BC ==
[2023-08-28 14:50] LABS: BASOPHILS ABSOLUTE AUTO 0.04 K/mm3 (0.00-0.23); BASOPHILS PERCENT AUTO 1 % (0-2); EOSINOPHILS ABSOLUTE AUTO 0.02 K/mm3 (0.00-0.68); EOSINOPHILS PERCENT AUTO 0 % (0-6); Hematocrit 42.8 % (33.0-51.0); Hemoglobin 13.9 g/dL (11.5-16.0); IMMATURE GRAN ABSOLUTE AUTO 0.01 K/mm3 (0.00-0.10); IMMATURE GRAN PERCENT AUTO 0 % (0-1); LYMPHOCYTES ABSOLUTE AUTO 1.61 K/mm3 (0.84-5.20); LYMPHOCYTES PERCENT AUTO 31 % (21-46); MONOCYTES ABSOLUTE AUTO 0.34 K/mm3 (0.16-1.47); MONOCYTES PERCENT AUTO 6 % (4-13); Mean Corpuscular HGB 29.8 pg (26.0-34.0); Mean Corpuscular HGB Conc 32.5 g/dL (31.5-36.5); Mean Corpuscular Volume 92 fL (80-100); Mean Platelet Volume 9.7 fL (9.1-12.4); NEUTROPHILS ABSOLUTE AUTO 3.26 K/mm3 (1.96-9.15); NEUTROPHILS PERCENT AUTO 62 % (41-73); Platelet Count 309 K/mm3 (150-400); RDW Coefficient Variation 12.3 % (11.7-14.2); RDW Standard Deviation 41.6 fL (35.1-46.3); Red Blood Cell Count 4.66 M/mm3 (3.80-5.20); White Blood Cell Count 5.28 K/mm3 (4.00-11.30)
[2023-08-28 15:33] LABS: Albumin, Blood 4.1 g/dL (3.4-5.0); Bilirubin, Total 0.4 mg/dL (0.1-1.0); Bun/Creatinine Ratio 26.5 (12.0-20.0); Calcium, Blood 9.3 mg/dL (8.5-10.1); Creatinine, Blood 0.72 mg/dL (0.40-1.00); Magnesium, Blood 2.4 mg/dL (1.6-2.4); Percent Saturation 30.6 % (15.0-50.0); Potassium, Blood 4.1 mmol/L (3.5-5.5); Total Protein, Blood 8.1 g/dL (6.4-8.2)
== END | disposition home or self-care (01) ==
LOC: LAB 13:17 → LAB SHORT 13:17
PROVIDERS: Family Medicine
DX: M79.7 Fibromyalgia (principal); G25.81 Restless legs syndrome; M25.50 Pain in unspecified joint; Z79.899 Other long term (current) drug therapy
CPT/HCPCS: 80053; 82550; 82728; 83540; 83550; 83735; 85025

== ENCOUNTER → 2023-11-10 | Outpatient (CLI) | payer MEDICARE, BC | LOC: LAB SHORT 16:26 → LAB 16:26 | DX: R35.0 Frequency of micturition (principal) | CPT/HCPCS: 87086 ==